=== PATIENT | male | born 2005 | race Caucasian/White ===

== ENCOUNTER 2023-03-03 11:36 | Emergency (ER) | payer OTHER, SELFPAY ==
--- NOTE | ~2023-03-03 | XR_ITS ---
XR toe 1st LT min 2V DATE: 03/03/2023 12:07 INDICATION: Distal phalanx pain after smashing injury TECHNIQUE: 4 views COMPARISON: None FINDINGS: There is suggestion of subungual l No fracture or dislocation, periosteal reaction or bone destruction. No radiopaque soft tissue foreig n body. IMPRESSION: No fracture or dislocation Reviewed, dictated and finalized at location A. STACKER IMPRESSION: No fracture or dislocation
[2023-03-03 11:44] VITALS: BP 168/82; PULSE 91; RESP 16; TEMP 36.4; O2SAT 100
--- NOTE | 2023-03-03 12:12 | ED.EXTPRO ---
HPI - Extremity Problem General Chief complaint: Extremity Problem,Nontraumatic Stated complaint: Left Big Toe Injury History of Present Illness HPI Narrative: Patient presents with an injury to his great toe on the left foot. Patient states he was at work and dropped a heavy trash can on his left great toe. Area around the toe nail is swollen and tender to touch no drainage noted. Patient states he missed work due to the pain today and would like a work note. Related Data Allergies Allergy/AdvReac Type Severity Reaction Status Date / Time No Known Allergies Allergy Verified 03/03/23 11:52 Review of Systems Review of Systems: CONSTITUTIONAL: Denies fever, chills, or sweats. EYES: Denies visual changes, redness, or discharge. ENT: Denies rhinorrhea, congestion, sore throat, or otalgia. CARDIOVASCULAR: Denies chest pain, palpitations, or edema. RESPIRATORY: Denies cough or dyspnea. GASTROINTESTINAL: Denies abdominal pain, nausea, vomiting, or diarrhea. GENITOURINARY: Denies dysuria or hematuria. SKIN: Denies rash or itching. MUSCULOSKELETAL: Denies back pain, joint pain, or myalgia. NEUROLOGIC: Denies headache, numbness, or weakness. PSYCHIATRIC: Denies anxiety or depression. PMFSH Comments At time of signature, agree with nursing past medical, surgical, social and family history. There is no relevant family history pertinent to the presenting complaint Exam Narrative: GENERAL: Well-appearing, well-nourished, and in no acute distress. HEAD: Normocephalic, atraumatic. EYES: PERRLA and EOMI. ENT: Nares clear, no rhinorrhea or epistaxis. Mucous membranes moist. NECK: Supple. CHEST: Clear to auscultation. No respiratory distress. HEART: Regular rate and rhythm. No murmur heard. Normal peripheral pulses. ABDOMEN: Soft, nontender, nondistended, normal active bowel sounds. EXTREMITIES: Normal range of motion. No edema. Left great toe sWELLING AND REDNESS AND FLUCTUANCE CONSISTENT WITH PARONYCHIA. NORMAL CAP REFILL. NORMAL SENSATION OF DISTAL TOE. NORMAL 2 POINT DISCRIMINATION. NORMAL MOVEMENT OF TOE AT PIP, DIP, MCP. NORMAL FOOT EXAM. NO STREAKING OR REDNESS INTO FOOT SKIN: Warm, dry, no rash. NEURO: No focal deficits. Alert and oriented x3. [place] Coma Scale Eye Opening: Spontaneous 4 [place] Coma Scale Motor: Obeys Commands 6 [place] Coma Scale Verbal: Oriented 5 Brock Coma Scale Total 15 Course Course Level of Care: Express Care Visit Vital Signs Vital signs: Vital Signs Temperature 36.4 C L 03/03/23 11:44 Pulse Rate 91 03/03/23 11:44 Respiratory Rate 16 03/03/23 11:44 Blood Pressure 168/82 H 03/03/23 11:44 Pulse Oximetry 100 03/03/23 11:44 Oxygen Delivery Room Air 03/03/23 11:44 Temperature 36.4 C L 03/03/23 11:44 Pulse Rate 91 03/03/23 11:44 Respiratory Rate 16 03/03/23 11:44 Blood Pressure 168/82 H 03/03/23 11:44 Pulse Oximetry 100 03/03/23 11:44 Oxygen Delivery Room Air 03/03/23 11:44 Please PAULA schedule a followup visit with your personal physician for further evaluation and treatment. Including recheck and discussion of your blood pressure. If your symptoms persist, change or worsen significantly before you can contact your personal physician then please, without delay, go to the emergency department for further evaluation MDM - Extremity (Nontraumatic) Imaging Data My impression: No fracture Radiologist's impression: No fracture or dislocation Discharge Plan Discharge Clinical Impression: Crush injury, toe Patient Disposition: Home, Self-Care Condition: Stable Instructions: Antibiotic Form, Paronychia (ED) Additional Instructions: Antibiotic as prescribed until gone Apply ointment as prescribed until gone Warm Epson salt water soaks as discussed Follow-up with primary care provider in 2-3 days for re-evaluation If any new or worsening symptoms please go to ER immediately further evaluation treatment Prescriptions: New
== END 2023-03-03 12:45 | disposition home or self-care (01) ==
PROVIDERS: Emergency Provider Nurse Practitioner Family
DX: S97.112A Crushing injury of left great toe, initial encounter (principal); W22.8XXA Striking against or struck by other objects, initial encounter
CPT/HCPCS: 73660; 99213; G0463